=== PATIENT | male | born 1950 | race Caucasian/White ===

== ENCOUNTER → 2018-11-24 | Outpatient (CLI) | payer BC, MEDICARE ==
[~2018-11-24] VITALS: Ht 190.5 cm; Wt 98.0 kg
[~2018-11-24] MED LIST: COZAAR 50MG50 MG/TAB PO; FISH OIL1000 MG; PRILOSEC 20MG20 MG PO
== END ==
LOC: SUN.CLI 14:39
DX: E11.9 Type 2 diabetes mellitus without complications (principal)